=== PATIENT | male | born 1955 | race Caucasian/White ===

== ENCOUNTER 2017-07-13 15:38 | Inpatient (IN) | payer OTHER ==
[~2017-07-13] VITALS: Ht 170.2 cm; Wt 81.6 kg
[2017-07-13] MEDS ORDERED: KETOROLAC TROMETHAMINE 60 MG/2 ML VIAL ONE (16:43)
[2017-07-13] MEDS ORDERED: KETOROLAC TROMETHAMINE 60 MG/2 ML VIAL IM ONE (16:45)
--- NOTE | 2017-07-13 17:32 | Diagnostic Imaging Report ---
PROCEDURE: Frontal and lateral views of the chest. COMPARISON: None. INDICATIONS: FLU LIKE SYMPTOMS FINDINGS: Lines/tubes: None. Lungs: 5.6 cm round mass in the left posterior mediastinum is indeterminate. The right lung is clear. Pleura: There is no pleural effusion or pneumothorax. Heart and mediastinum: The heart is mildly enlarged. Bones: No acute bony abnormality. IMPRESSION: 5.6 cm mass in the left posterior mediastinum is indeterminate. Recommend CT of the chest for further evaluation. Otherwise no consolidation or edema. Dictated by: Jhonatan Tobin M.D. on 07/13/2017 at 17:40 Electronically approved by: Jhonatan Tobin M.D. on 07/13/2017 at 17:40
[2017-07-13] MEDS ORDERED: SODIUM CHLORIDE 0.9% 1000ML 1,000 ML IV ONE (18:45)
[2017-07-13] MEDS ORDERED: SODIUM CHLORIDE FLUSH 10 ML SYR INJ PRN ×2 (18:45)
[2017-07-13] MEDS ORDERED: ACETAMINOPHEN 325 MG TAB PO PRN (19:00)
[2017-07-13] MEDS ORDERED: ONDANSETRON HCL INJ 2 MG/ML VIAL IV PRN (19:00)
[2017-07-13] MEDS ORDERED: AZITHROMYCIN 500MG/NS 250 ML 250 ML IV ONE (19:15)
[2017-07-13] MEDS: CEFTRIAXONE SOD 1 GM VIAL IV SCH (19:31)
[2017-07-13] MEDS ORDERED: KETOROLAC TROMETHAMINE 30 MG/ML VIAL IV STA (19:32)
[2017-07-13] MEDS: SODIUM CHLORIDE 0.9% 1000ML 1,000 ML IV SCH (19:44)
[2017-07-13 20:18] LABS: BASOPHILS % 0.3 % (0.0-1.0); EOSINOPHILS # (AUTO) 0.2 (0.0-0.4); EOSINOPHILS % 1.4 % (0.0-6.0); HEMATOCRIT 42.8 % (38.2-49.6); HEMOGLOBIN 14.2 g/dL (14.0-18.0); LYMPHOCYTES # (AUTO) 1.5 (1.0-3.2); LYMPHOCYTES % 12.8 % (18.0-39.1); MEAN CORPUSCULAR HEMOGLOBIN 28.2 pg (28-32); MEAN CORPUSCULAR HGB CONC 33.2 g/dL (31-35); MEAN CORPUSCULAR VOLUME 85.1 fL (81-99); MONOCYTES # (AUTO) 0.7 (0.2-0.8); MONOCYTES % 6.2 % (4.4-11.3); NEUTROPHILS # (AUTO) 9.3 (2.1-6.9); NEUTROPHILS % 79.1 % (38.7-80.0); PLATELET COUNT 303 x10e3/uL (140-360); RED BLOOD COUNT 5.03 x10e6/uL (4.3-5.7); RED CELL DISTRIBUTION WIDTH 11.9 % (11.7-14.4)
[2017-07-13 20:45] LABS: ALANINE AMINOTRANSFERASE 18 IU/L (0-55); ALBUMIN 3.4 g/dL (3.5-5.0); ALBUMIN/GLOBULIN RATIO 0.7 (0.8-2.0); ALKALINE PHOSPHATASE 81 IU/L (40-150); ANION GAP 12.8 mmol/L (8-16); BLOOD UREA NITROGEN 13 mg/dL (7-26); BUN/CREATININE RATIO 11 (6-25); CALCIUM 9.5 mg/dL (8.4-10.2); CARBON DIOXIDE 29 mmol/L (22-29); CHLORIDE 100 mmol/L (98-107); CREATINE KINASE 14 IU/L (30-200); CREATININE, SERUM 1.22 mg/dL (0.72-1.25); EST GLOMERULAR FILTRATION RATE 60 ML/MIN (60-); GLUCOSE 95 mg/dL (74-118); LACTATE DEHYDROGENASE 215 IU/L (125-220); POTASSIUM 3.8 mmol/L (3.5-5.1); SODIUM 138 mmol/L (136-145)
[2017-07-13 20:58] LABS: TROPONIN I < 0.001 ng/mL (0-0.300)
--- NOTE | 2017-07-13 21:57 | Diagnostic Imaging Report ---
EXAM: CT CHEST W DATE: 07/13/2017 6:37 PM INDICATION: Mediastinal mass COMPARISON: None TECHNIQUE: Multidetector CT scanning of the chest was performed. Coronal and sagittal multiplanar reformations were obtained. IV Contrast: 100 mL of Isovue-370 FINDINGS: LUNGS AND PLEURA: There is a 5 x 5.2 x 5.4 cm mass of the superior segment left lower lobe which abuts the pleural surface with focal left basilar pleural thickening or fluid. 5 mm right middle lobe subpleural nodule on image 86, which can be followed. HEART, MEDIASTINUM, VESSELS: Normal heart size with small pericardial effusion. Coronary artery calcification. There is right supraclavicular, right paratracheal, mediastinal, AP window and prevascular adenopathy. The largest for example in the AP window measures 3.2 cm and in the precarinal region 3.0 cm. UPPER ABDOMEN: Unremarkable MUSCULOSKELETAL: Compression fracture with vertebroplasty at T12. T4 hemangioma. IMPRESSION: 1. Superior segment left lower lobe mass, likely primary lung malignancy. 2. Metastatic adenopathy to the mediastinum and right supraclavicular region. 3. 5 mm right middle lobe subpleural nodule, which can be followed Signed by: Dr Debbie Martinez MD on 07/13/2017 9:54 PM
[2017-07-13] MEDS ORDERED: SODIUM CHLORIDE 0.9% 50ML 50 ML ONE (22:39)
[2017-07-13] MEDS ORDERED: IOPAMIDOL 370 MG/ML 200 ML INFUS..BTL INJ ONE (22:39)
[2017-07-14] VITALS (9 sets, daily range): BP systolic 108–139; BP diastolic 41–95
[2017-07-14] MEDS: ALBUTEROL/IPRATROPIUM 3 ML NEB NEB SCH ×3 (00:20→19:20)
--- NOTE | 2017-07-14 07:27 | Diagnostic Imaging Report ---
EXAMINATION: CHEST SINGLE (PORTABLE) INDICATION: \S\fever COMPARISON: CT chest from 07/13/2017 FINDINGS: AP view TUBES and LINES: None. LUNGS: Lungs are well inflated. Unchanged 5.5 cm left medial upper lobe mass. There is no evidence of pneumonia or pulmonary edema. PLEURA: No pleural effusion or pneumothorax. HEART AND MEDIASTINUM: The cardiac silhouette is within normal limits. Bilateral hilar and mediastinal lymphadenopathy, unchanged.. BONES AND SOFT TISSUES: No acute osseous lesion. Soft tissues are unremarkable. UPPER ABDOMEN: No free air under the diaphragm. IMPRESSION: Unchanged left upper lobe mass. No new consolidations. Signed by: Dr. Miladys Avila M.D. on 07/14/2017 7:23 AM
[2017-07-14 08:09] LABS: BASOPHILS % 0.3 % (0.0-1.0); EOSINOPHILS # (AUTO) 0.3 (0.0-0.4); EOSINOPHILS % 2.8 % (0.0-6.0); HEMATOCRIT 37.4 % (38.2-49.6); HEMOGLOBIN 12.5 g/dL (14.0-18.0); LYMPHOCYTES # (AUTO) 1.1 (1.0-3.2); LYMPHOCYTES % 11.7 % (18.0-39.1); MEAN CORPUSCULAR HEMOGLOBIN 28.3 pg (28-32); MEAN CORPUSCULAR HGB CONC 33.4 g/dL (31-35); MEAN CORPUSCULAR VOLUME 84.8 fL (81-99); MONOCYTES # (AUTO) 0.5 (0.2-0.8); NEUTROPHILS # (AUTO) 7.1 (2.1-6.9); NEUTROPHILS % 78.9 % (38.7-80.0); PLATELET COUNT 245 x10e3/uL (140-360); RED BLOOD COUNT 4.41 x10e6/uL (4.3-5.7); RED CELL DISTRIBUTION WIDTH 11.9 % (11.7-14.4)
[2017-07-14 08:31] LABS: ALANINE AMINOTRANSFERASE 16 IU/L (0-55); ALBUMIN 2.8 g/dL (3.5-5.0); ALBUMIN/GLOBULIN RATIO 0.8 (0.8-2.0); ALKALINE PHOSPHATASE 65 IU/L (40-150); ANION GAP 11.7 mmol/L (8-16); BLOOD UREA NITROGEN 12 mg/dL (7-26); BUN/CREATININE RATIO 13 (6-25); CALCIUM 8.5 mg/dL (8.4-10.2); CARBON DIOXIDE 26 mmol/L (22-29); CHLORIDE 103 mmol/L (98-107); CREATININE, SERUM 0.92 mg/dL (0.72-1.25); EST GLOMERULAR FILTRATION RATE > 60 ML/MIN (60-); GLUCOSE 95 mg/dL (74-118); POTASSIUM 3.7 mmol/L (3.5-5.1); SODIUM 137 mmol/L (136-145)
[2017-07-14] MEDS: SODIUM CHLORIDE 0.9% 1000ML 1,000 ML IV SCH (08:51)
[2017-07-14] MEDS ORDERED: GUAIFENESIN 600MG/DEXTROMETHORPHAN 30MG TABSR PO SCH (09:15)
[2017-07-14] MEDS: GUAIFENESIN 600MG/DEXTROMETHORPHAN 30MG TABSR PO SCH ×3 (11:00→20:46)
[2017-07-14] MEDS: AZITHROMYCIN 500MG/NS 250 ML 250 ML IV SCH (12:00)
[2017-07-14] MEDS ORDERED: LORAZEPAM 0.5 MG TAB PO PRN (12:30)
[2017-07-14] MEDS ORDERED: HYDROCODONE/APAP 7.5MG-325MG 1 EA TAB PO PRN (12:30)
[2017-07-14] MEDS: OSELTAMIVIR PHOSPHATE 75 MG CAP PO SCH ×2 (13:00→17:48)
--- NOTE | 2017-07-14 14:45 | History and Physical ---
PRIMARY CARE PROVIDER: Dr. Abner England CHIEF COMPLAINT: Fever, chills, hacking cough, and shortness of breath for the last few days. HISTORY OF PRESENT ILLNESS: Mr. Tucker is a 61-year-old gentleman who comes in complaining of fever, chills, hacking cough, and shortness of breath for the last few days. REVIEW OF SYSTEMS: He has had subjective fever and chills. He denies weight loss. He has left chest wall pain chronically. Denies anginal type chest pain or palpitations. He has had a hacking cough with shortness of breath. He denies wheezing. He denies abdominal pain, nausea, vomiting, or melena. He denies dysuria or flank pain. He denies rash or pruritus. He denies joint pain or swelling. He denies bleeding or bruising. He denies headache, vertigo or loss of consciousness. He denies depression, agitation, homicide, or suicidal ideation. PAST MEDICAL HISTORY: Completely negative. MEDICATIONS: The patient is on no chronic medications. He has had no significant surgery. ALLERGIES: HE HAS NO KNOWN DRUG ALLERGIES. FAMILY HISTORY: Likewise unremarkable. SOCIAL HISTORY: The patient is . Slovak is his primary language. He quit smoking cigarettes about 35 years ago, but has been smoking a pipe ever since for the last 35 years up until a couple of days ago when he was too sick. He does not drink or use illegal drugs. He is generally independent functioning. PHYSICAL EXAMINATION PSYCHIATRIC: He is alert and oriented times 3 with normal mood and affect. CONSTITUTIONAL: He has a normal body habitus. He is in no acute distress. VITAL SIGNS: Blood pressure 135/82, pulse initially 113 and currently 83 and regular, respiratory rate 18, O2 sat 95% on L nasal cannula, temperature on admission 101.7 and currently 98.8. HEENT: His head is atraumatic. His eyes are anicteric with clear conjunctivae. Ears and nares are without erythema or discharge. Oropharynx is clear. NECK: Supple. No mass or thyromegaly. LYMPHATIC SYSTEM: He has no palpable cervical, axillary or inguinal adenopathy. CARDIOVASCULAR: His heart has a regular rate and rhythm without murmur or extra heart sounds. He has no carotid bruits. He has no peripheral edema. He has weak dorsal pedal pulses. RESPIRATORY: Lungs reveal generally diminished breath sounds. Otherwise, clear without wheezing. He has a hacking cough. Normal respiratory effort. GASTROINTESTINAL: Abdomen is soft without organomegaly, masses or tenderness. He has normal bowel sounds present. CUTANEOUS: Skin is warm to touch. No rash or skin breakdown. MUSCULOSKELETAL: His joints are in normal alignment without erythema or swelling. He has no calf tenderness. NEUROLOGIC: Nonfocal with intact cranial nerves and no motor or sensory deficits. DIAGNOSTIC STUDIES: Chest x-ray shows a 5.6-cm mass in the left posterior mediastinum. CT scan of the chest showed a superior segment left lower lobe mass approximately 5.6 cm with some mediastinal and right supraclavicular adenopathy suggestive of metastasis. His flu screen was negative. Troponin less than 0.001. His chemistry profile shows normal electrolytes. CO2 29, creatinine 1.22, BUN 13 for a GFR of 60. Glucose 95. Calcium 9.5. His transaminases, bilirubin and alk phos are normal. CBC shows a white count of 11.6 with 79% neutrophils, 13% lymphocytes, which is elevated. Hemoglobin 14.2, hematocrit 42.8 and platelet count 303,000. IMPRESSION AND PLAN 1. Bronchopneumonia with sepsis: The patient has been started on intravenous Zithromax and Rocephin along with p.o. Tamiflu, aggressive nebulizer treatments and Mucinex for expectoration. 2. Left lower lobe lung mass: Pulmonology has been consulted. The patient will need a biopsy, either computerized tomography-guided or endobronchial mass on computerized tomography scan was highly suspicious for primary lung cancer. 3. For prophylaxis, the patient will be on Lovenox for deep venous thrombosis prophylaxis and Pepcid for gastrointestinal prophylaxis. Job#: [id number] MT
[2017-07-14] MEDS: FAMOTIDINE 20 MG TAB PO SCH (17:00)
[2017-07-14] MEDS ORDERED: ENOXAPARIN SOD INJ 40 MG/0.4 ML SYR SC SCH (17:00)
[2017-07-14] MEDS: CEFTRIAXONE SOD 1 GM VIAL IV SCH (17:49)
--- NOTE | 2017-07-14 18:36 | Consultation ---
DATE OF CONSULTATION: PULMONARY CONSULTATION REASON FOR CONSULT: Abnormal CT of the chest. HPI: Mr. Tucker is a 61-year-old male who presented to the emergency room with left-sided chest pain and shortness of breath going on for the last few weeks and progressively getting worse. Patient also reported that he was feeling hot and cold at home, and the temperature was 101.7 in the emergency room. He reports weight loss. REVIEW OF SYSTEMS GENERAL: Was having fever and chills. HEENT: Head: Denies any head trauma. ENT: Denies any earache or nosebleed. CV: Left-sided chest pain, pleuritic in nature and gets worse with cough. GI: Denies any nausea or vomiting. Rest of the review systems are negative except as in HPI. PAST MEDICAL HISTORY: None. PAST SURGICAL HISTORY: Possible history of kyphoplasty the described. FAMILY AND SOCIAL HISTORY: He is and lives with his . He has been a smoker for 30+ years. Smokes pipes only. PHYSICAL EXAMINATION VITAL SIGNS: Temperature 96.9, pulse of 73, blood pressure 108/74, respiratory rate of 18, O2 sat 94% on room air. SKIN: Warm and dry. GENERAL: Middle-aged male in moderate distress because of the left-sided chest pain. HEENT: Head atraumatic and normocephalic. NECK: Supple. No JVD. Thyroid not enlarged. CHEST: Markedly reduced air entry bilaterally with crackles on the bases. HEART: S1 and S2 audible. ABDOMEN: Soft, nontender and nondistended. EXTREMITIES: No clubbing, cyanosis or edema. NEUROLOGIC: Awake and alert. LABS: White count of 11,000, hemoglobin 14.2, hematocrit 42.8, and platelets 303,000. Chemistry is within normal limits. Influenza is negative. ASSESSMENT AND PLAN 1. Dusty Tucker is a 61-year-old male with left lower lobe lung mass and massive mediastinal lymphadenopathy. Patient was offered endobronchial ultrasound and biopsy, which I would do it at [facility] as I can do the lymph node biopsy and stage both procedures, including CT-guided biopsy and bronchoscopy were explained. Patient wants to stay here and do a CT-guided biopsy rather than the endobronchial ultrasound and biopsy. The likelihood of malignancy is high as patient has been a smoker. 2. Fever, likely postobstructive pneumonia: Agree with the antibiotics. Discussed with the patient's at bedside. Job#: [id number] RI
[2017-07-15] VITALS (8 sets, daily range): BP systolic 120–144; BP diastolic 65–88
[2017-07-15] MEDS: ALBUTEROL/IPRATROPIUM 3 ML NEB NEB SCH ×4 (01:02→19:15)
[2017-07-15] MEDS: SODIUM CHLORIDE 0.9% 1000ML 1,000 ML IV SCH (03:33)
[2017-07-15] MEDS: GUAIFENESIN 600MG/DEXTROMETHORPHAN 30MG TABSR PO SCH ×4 (05:44→21:19)
[2017-07-15] MEDS: FAMOTIDINE 20 MG TAB PO SCH ×2 (08:00→16:30)
[2017-07-15] MEDS: OSELTAMIVIR PHOSPHATE 75 MG CAP PO SCH ×2 (09:10→17:32)
[2017-07-15] MEDS: AZITHROMYCIN 500MG/NS 250 ML 250 ML IV SCH (11:00)
[2017-07-15] MEDS ORDERED: MORPHINE SULFATE 2 MG/ML SYR IV PRN (13:00)
[2017-07-15 14:15] LABS: PROTHROMBIN TIME 13.7 seconds (11.9-14.5)
[2017-07-15] MEDS: CEFTRIAXONE SOD 1 GM VIAL IV SCH (18:07)
[2017-07-16 00:27] VITALS: BP 131/70
[2017-07-16 05:03] VITALS: BP 124/69
[2017-07-16] MEDS: GUAIFENESIN 600MG/DEXTROMETHORPHAN 30MG TABSR PO SCH ×4 (05:25→21:15)
[2017-07-16 07:11] LABS: BASOPHILS % 0.3 % (0.0-1.0); EOSINOPHILS # (AUTO) 0.3 (0.0-0.4); EOSINOPHILS % 3.2 % (0.0-6.0); HEMATOCRIT 35.9 % (38.2-49.6); HEMOGLOBIN 11.9 g/dL (14.0-18.0); LYMPHOCYTES # (AUTO) 1.1 (1.0-3.2); LYMPHOCYTES % 11.6 % (18.0-39.1); MEAN CORPUSCULAR HEMOGLOBIN 28.5 pg (28-32); MEAN CORPUSCULAR HGB CONC 33.1 g/dL (31-35); MEAN CORPUSCULAR VOLUME 85.9 fL (81-99); MONOCYTES # (AUTO) 0.7 (0.2-0.8); MONOCYTES % 7.1 % (4.4-11.3); NEUTROPHILS # (AUTO) 7.6 (2.1-6.9); NEUTROPHILS % 77.5 % (38.7-80.0); PLATELET COUNT 244 x10e3/uL (140-360); RED BLOOD COUNT 4.18 x10e6/uL (4.3-5.7)
[2017-07-16] MEDS: ALBUTEROL/IPRATROPIUM 3 ML NEB NEB SCH ×4 (07:15→19:10)
[2017-07-16 07:21] LABS: PARTIAL THROMBOPLASTIN TIME 35.9 seconds (23.8-35.5); PROTHROMBIN TIME 13.7 seconds (11.9-14.5)
[2017-07-16 07:32] LABS: ANION GAP 10.6 mmol/L (8-16); BLOOD UREA NITROGEN 8 mg/dL (7-26); BUN/CREATININE RATIO 9 (6-25); CALCIUM 8.5 mg/dL (8.4-10.2); CARBON DIOXIDE 27 mmol/L (22-29); CHLORIDE 101 mmol/L (98-107); CREATININE, SERUM 0.88 mg/dL (0.72-1.25); EST GLOMERULAR FILTRATION RATE > 60 ML/MIN (60-); GLUCOSE 87 mg/dL (74-118); POTASSIUM 3.6 mmol/L (3.5-5.1); SODIUM 135 mmol/L (136-145)
[2017-07-16 07:51] VITALS: BP 139/76
[2017-07-16] MEDS: FAMOTIDINE 20 MG TAB PO SCH ×2 (08:22→16:30)
[2017-07-16] MEDS: OSELTAMIVIR PHOSPHATE 75 MG CAP PO SCH ×2 (08:22→17:20)
[2017-07-16] MEDS ORDERED: FENTANYL CITRATE/PF 100MCG/2 ML INJ ONE (10:06)
[2017-07-16] MEDS ORDERED: MIDAZOLAM HCL 2 MG/2 ML VIAL ONE (10:06)
[2017-07-16] MEDS ORDERED: SODIUM CHLORIDE 0.9% 250ML 250 ML ONE (10:30)
[2017-07-16] MEDS: AZITHROMYCIN 500MG/NS 250 ML 250 ML IV SCH (10:45)
--- NOTE | 2017-07-16 12:29 | Diagnostic Imaging Report ---
PROCEDURE:CT GUIDED LEFT LUNG MASS BIOPSY COMPARISON:[facility], CT, CT CHEST W, 07/13/2017, 21:16. INDICATIONS:Lung bx MEDICATIONS:1 mg Versed and 50 micrograms of Fentanyl FINDINGS: Written and verbal consent were obtained. Patient was placed in the prone position. Preliminary CT scan identified superior segment left lower lobe pulmonary mass. A safe entry route was identified and the overlying skin was prepped and draped in usual sterile fashion. Lidocaine 1% was used for local pain control. A 19 gauge guiding needle was placed into the mass. Fine needle aspiration with a 20 gauge Chiba was accomplished. 5 core biopsies with 20 gauge biopsy gun and Chiba needle was accomplished. Pathologist deemed the specimens adequate for diagnosis. The patient tolerated the procedure well, and there were no immediate post-procedural complications. Post biopsy CT shows no evidence of a pneumothorax. CONCLUSION: Successful CT-guided fine needle aspiration and core biopsy of a left lung mass. Mehrdad Lyon D.O. Dictated by: Mehrdad Lyon D.O. on 07/16/2017 at 12:38 Electronically approved by: Mehrdad Lyon D.O. on 07/16/2017 at 12:38
[2017-07-16] MEDS ORDERED: METOPROLOL TARTRATE INJ 1 MG/ML VIAL IV PRN (17:30)
[2017-07-16] MEDS: CEFTRIAXONE SOD 1 GM VIAL IV SCH (18:01)
[2017-07-16 20:00] VITALS: BP 115/78
[2017-07-16 20:47] VITALS: BP 115/78
[2017-07-17] VITALS (7 sets, daily range): BP systolic 114–143; BP diastolic 75–81
[2017-07-17] MEDS: GUAIFENESIN 600MG/DEXTROMETHORPHAN 30MG TABSR PO SCH ×4 (04:27→21:01)
[2017-07-17 06:54] LABS: BASOPHILS % 0.3 % (0.0-1.0); EOSINOPHILS # (AUTO) 0.2 (0.0-0.4); EOSINOPHILS % 1.8 % (0.0-6.0); HEMATOCRIT 37.6 % (38.2-49.6); HEMOGLOBIN 12.3 g/dL (14.0-18.0); LYMPHOCYTES # (AUTO) 1.1 (1.0-3.2); LYMPHOCYTES % 10.6 % (18.0-39.1); MEAN CORPUSCULAR HEMOGLOBIN 28.3 pg (28-32); MEAN CORPUSCULAR HGB CONC 32.7 g/dL (31-35); MEAN CORPUSCULAR VOLUME 86.4 fL (81-99); MONOCYTES # (AUTO) 0.7 (0.2-0.8); PLATELET COUNT 235 x10e3/uL (140-360); RED BLOOD COUNT 4.35 x10e6/uL (4.3-5.7); RED CELL DISTRIBUTION WIDTH 11.9 % (11.7-14.4)
[2017-07-17 07:13] LABS: ANION GAP 13.9 mmol/L (8-16); BLOOD UREA NITROGEN 11 mg/dL (7-26); BUN/CREATININE RATIO 12 (6-25); CALCIUM 8.8 mg/dL (8.4-10.2); CARBON DIOXIDE 25 mmol/L (22-29); CHLORIDE 99 mmol/L (98-107); CREATININE, SERUM 0.93 mg/dL (0.72-1.25); EST GLOMERULAR FILTRATION RATE > 60 ML/MIN (60-); GLUCOSE 88 mg/dL (74-118); POTASSIUM 3.9 mmol/L (3.5-5.1); SODIUM 134 mmol/L (136-145)
[2017-07-17] MEDS: FAMOTIDINE 20 MG TAB PO SCH ×2 (07:30→16:22)
[2017-07-17] MEDS: ALBUTEROL/IPRATROPIUM 3 ML NEB NEB SCH ×3 (07:45→19:05)
[2017-07-17] MEDS: OSELTAMIVIR PHOSPHATE 75 MG CAP PO SCH ×2 (08:44→16:22)
[2017-07-17] MEDS: AZITHROMYCIN 500MG/NS 250 ML 250 ML IV SCH (09:00)
[2017-07-17] MEDS ORDERED: MORPHINE SULFATE 2 MG/ML SYR IV PRN (09:13)
[2017-07-17] MEDS ORDERED: HYDROCODONE/APAP 7.5MG-325MG 1 EA TAB PO PRN (09:14)
--- NOTE | 2017-07-17 09:43 | Consultation ---
DATE OF CONSULTATION: July 17, 2017 Thank you, Dr. Leong, for this consultation. This is a very pleasant 61-year-old gentleman with a past medical history including cigarette smoking and pipe smoking. He stopped smoking about 35 years ago, and he continued to smoke a pipe. He was admitted through emergency with worsening shortness of breath associated with fever, chills and had a cough. At the time of admission, the patient's workup included a CT scan and x-rays, which showed a 5.6-cm mass in the left posterior mediastinum. It also is associated with mediastinal right supraclavicular lymphadenopathy. He was followed with exchange administrator. He had a CT-guided lung biopsy. He currently feels fatigued and tired. He is still complaining of persistent cough. No hemoptysis noted. PAST MEDICAL HISTORY: None. ALLERGIES: NKDA. MEDICATIONS: List reviewed. SOCIAL HISTORY: Patient is . Jordanian is the primary language. Active smoker. Currently, smokes pipes. No alcohol or drugs. FAMILY HISTORY: Reviewed. Not relevant. REVIEW OF SYSTEMS: A 12-point review of systems as per HPI. PHYSICAL EXAMINATION GENERAL: Alert, awake and communicative. HEENT: Normocephalic and atraumatic. Sclerae pink. Conjunctivae clear. NECK: Supple. CHEST: Clear to auscultation with decreased breath sounds at bases and especially lower lungs. ABDOMEN: Soft and nontender. EXTREMITIES: No edema. COMMERCIAL REAL ESTATE UNDERWRITER: Grossly intact. MUSCULOSKELETAL: Normal to inspection. LABS: Reviewed. Hemoglobin 14, hematocrit 42 and platelet count 303,000. IMAGING: X-ray of the chest shows a 5 cm left posterior mediastinum. CT scan also showed left lower lobe mass approximately 5.6 cm with supraclavicular lymphadenopathy and also mediastinal lymphadenopathy. ASSESSMENT AND PLAN: Patient with a history of smoking, including pipe smoking. Currently, in the hospital with fever, chills, shortness of breath, cough, and workup shows left posterior mediastinal lung mass. Likely possibility of primary lung cancer, and it also showed supraclavicular lymphadenopathy with advanced stage disease. The patient already following pulmonology. He already received CT-guided lung biopsy. Pathology report is pending. RECOMMENDATIONS: Will follow pathology report. Will get PET CT as an outpatient. Not a candidate for surgical resection. Likely, palliative chemo or possible concurrent chemoradiation. Further recommendation is treatment based on PET CT and pathology report. Will continue remaining care. Will follow the patient closely. Discussed about smoking cessation. Will follow. Job#: [id number] ALEXX
[2017-07-17] MEDS: CEFTRIAXONE SOD 1 GM VIAL IV SCH (18:16)
[2017-07-18] VITALS: BP 111/78
[2017-07-18] MEDS: ALBUTEROL/IPRATROPIUM 3 ML NEB NEB SCH ×2 (00:40→07:45)
[2017-07-18 01:05] VITALS: BP 124/66
[2017-07-18 04:00] VITALS: BP 107/69
[2017-07-18] MEDS: GUAIFENESIN 600MG/DEXTROMETHORPHAN 30MG TABSR PO SCH ×2 (04:52→09:08)
[2017-07-18 07:40] VITALS: BP 125/74
[2017-07-18 08:49] VITALS: BP 125/74
[2017-07-18] MEDS: OSELTAMIVIR PHOSPHATE 75 MG CAP PO SCH (09:08)
[2017-07-18] MEDS: FAMOTIDINE 20 MG TAB PO SCH (09:08)
[2017-07-18] MEDS: AZITHROMYCIN 500MG/NS 250 ML 250 ML IV SCH (09:08)
--- NOTE | 2017-07-18 09:45 | Progress Note ---
DATE: July 18, 2017 Patient was seen and examined today. Patient appeared comfortable. Clinical condition is improving. Still persistent cough and chest pain. No other events noted. PHYSICAL EXAMINATION GENERAL: Alert, awake and communicative. HEENT: Normocephalic and atraumatic. Sclerae pink. Conjunctivae clear. NECK: Supple. CHEST: Clear to auscultation with decreased breath sounds at the bases. Occasional rhonchi. ABDOMEN: Soft and nontender. EXTREMITIES: No edema. LABS AND IMAGING: Reviewed. ASSESSMENT AND PLAN: Patient with a history of multiple medical conditions. I am currently following for: 1. Recently diagnosed left lower lobe lung mass: The patient is status post biopsy. 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 Patient already has supraventricular tachycardia. Likely, advanced stage. RECOMMENDATIONS: ECG as an outpatient. Patient likely candidate for chemoradiation or palliative chemo. Patient was discussed in detail, and talked about the different options of treatment. He understands the plan of care. Patient will be followed as an outpatient. Will continue remaining care. Will follow the patient closely. Discussed the case with art museum docent. Job#: [id number] ALEXX
[2017-07-18 11:33] VITALS: BP 107/69
[2017-07-18] MEDS ORDERED: CEFTIN PO (12:24)
[2017-07-18] MEDS ORDERED: TYLENOL WITH C1 EACH PO (12:24)
[2017-07-18] MEDS ORDERED: MUCINEX DM ER1 EACH PO (12:24)
--- NOTE | 2017-07-19 02:33 | Discharge Summary ---
ADMISSION DIAGNOSES 1. Bronchopneumonia with sepsis. 2. Left lower lobe lung mass. DISCHARGE DIAGNOSES 1. Bronchopneumonia with sepsis. 2. Left lower lobe lung mass. HISTORY: Patient has no medical history at all and no significant surgery history. HOSPITAL COURSE: A 61-year-old male presented with left-sided chest pain and shortness of breath for the last few weeks progressively getting worse. He also reported feeling hot and cold at home, and had a temp of 101.7 in the ER. He reports recent weight loss. On admission, the patient was found to have a left lower lobe lung mass and massive lymphadenopathy. The patient was offered endobronchial ultrasound and biopsy, which would be at [facility], but he refused. He would rather do the CT-guided biopsy. For the bronchopneumonia and sepsis, the patient was started on Rocephin, Zithromax and Tamiflu along with nebs and Mucinex. Pulmonary was following the lung mass and biopsy. After biopsy was completed, hematology was consulted. Per hematology, the report was consistent with squamous cell carcinoma. The patient is likely a candidate for chemoradiation or palliative care. The patient and his understand the plan of care. He will follow up with pulmonology and hematology outpatient. On admission, the x-ray showed the 5-cm mass in the left posterior mediastinum. During the hospital stay, blood cultures were negative. The patient remained afebrile and white count returned to normal after starting IV antibiotics. Although flu screen was negative, the patient was symptomatic and had flu-like symptoms. At the time of discharge, WBC was 9.96, hemoglobin 12.3, hematocrit 37.6. Sodium 134, potassium 3.9, creatinine of 0.93, BUN of 11. Vital signs stable. During the hospital stay, the patient completed the course of Zithromax, so he was sent home on Ceftin for 5 more days, Mucinex p.r.n. and Tylenol 3 for any pleural pain that he might have. The patient will follow up as discussed. DICTATED BY NOEL PRETTY NP MARCELA MANCUSO MD Job#: [id number] ID
== END 2017-07-18 14:35 | disposition home or self-care (01) | DRG 871 ==
LOC: ER 15:38 → ERHOLD 20:49 → MED/SURG3 23:48
PROVIDERS: ADMIT Internal Medicine; ATTEND Internal Medicine
PROC: 0BBJ3ZX Excision of Left Lower Lung Lobe, Percutaneous Approach, Diagnostic (ICD-10-PCS; principal; 2017-07-16)
DX: A41.9 Sepsis, unspecified organism (principal); J18.0 Bronchopneumonia, unspecified organism; J11.00 Influenza due to unidentified influenza virus with unspecified type of pneumonia; C34.32 Malignant neoplasm of lower lobe, left bronchus or lung; I47.1 Supraventricular tachycardia; E87.1 Hypo-osmolality and hyponatremia; F17.290 Nicotine dependence, other tobacco product, uncomplicated; D64.9 Anemia, unspecified; R59.0 Localized enlarged lymph nodes
CPT/HCPCS: 32405; 36415; 71045; 71046; 71260; 74470; 77012; 80048; 80053; 82550; 82553; 83605; 83615; 84484; 85025; 85610; 85730; 87040; 87400; 88172; 88173; 88305; 88333; 93005; 94640; 96367; 99284; J0456; J0696; J1650; J1885; J2250; J2270; J2405; J7030; J7050; Q9967